=== PATIENT | male | born 1995 | race Caucasian/White ===

== ENCOUNTER 2020-03-24 07:22 | Outpatient (REF) | payer BC, SELFPAY | END 2020-03-24 07:23 | disposition home or self-care (01) | LOC: HO.LAB 07:22 | PROVIDERS: Visit Provider Internal Medicine | DX: Z20.828 Contact with and (suspected) exposure to other viral communicable diseases (principal) | CPT/HCPCS: C9803; U0003 ==

== ENCOUNTER 2022-03-18 06:14 | Emergency (ER) | payer BC, SELFPAY ==
--- NOTE | ~2022-03-18 | CT_ITS ---
EXAMINATION: CT HEAD WITHOUT CONTRAST CLINICAL INFORMATION: Left-sided headache with vision changes. COMPARISON: None TECHNIQUE: Contiguous axial imaging was performed from the skull base to vertex without intravenous administration of contrast. Coronal and sagittal reformatted images were obtained. This CT examination was performed using dose optimization techniques as appropriate, variously including the following: *Automated exposure control *Adjustment of mA and/or kV according to patient size (this includes techniques or standardized protocols for targeted exams where dose is matched to indication/reason for exam; i.e. extremities or head) *Use of iterative reconstruction technique DLP: 852 mGy-cm FINDINGS: The cortical sulci are normal. The lateral ventricles are symmetrical. The third and fourth ventricles are in their normal midline position. The basilar and prepontine cisterns are unremarkable. There is no acute intra or extracerebral abnormality. There is no mass effect or midline shift. Sections through the bony calvarium are unremarkable. The paranasal sinuses are clear. The bony orbits and orbital contents are unremarkable. CT/CT head/brain wo IV con IMPRESSION: No acute intracranial pathology.
[2022-03-18 06:28] VITALS: BP 133/94; PULSE 78; RESP 16; TEMP 36.6; O2SAT 99; BMI 27.8
[2022-03-18 07:33] VITALS: BP 131/80; PULSE 70; RESP 15; TEMP 36.6; O2SAT 98
--- NOTE | 2022-03-18 08:18 | PC.NURSE ---
pt alert and oriented, skin pwd, respirations even and unlabored, pt reports headache on the left side x7 days that has woken him out of sleep, lots of pressure behind the left eye, no cough/sob/ denies light and noise sensitivity some nasuea. all neuro intac, no visible hand drift, equal and strong hand grasp, no difficulty ambulating, no dizziness
--- NOTE | 2022-03-18 08:58 | ED_ITS ---
HPI - Headache General Chief Complaint: Headache Stated Complaint: consistent migraine for about a week Time Seen by Provider: 03/18/22 08:02 Source: patient Mode of arrival: ambulatory Limitations: no limitations History of Present Illness HPI Narrative: 26-year-old male no significant past medical history presents to the emergency department for reports of a headache for the past 7 days. He states he wakes from his sleep with head pain in his left-sided eye pressure. He states he last took ibuprofen at 5:00 a.m. with no relief of symptoms. He denies any known sick contacts. He denies fever, chills, changes in bowels, difficulty with urination, or vision changes. MD elicited complaint: migraine Onset (ago): week(s) (1) Onset description: while at rest Location: left Severity: moderate Pain scale (0-10): 4 Quality & Timing: aching Relieving factors: nothing Context: occurred at rest Associated symptoms: none Treatments prior to arrival: ibuprofen Related Data Allergies Allergy/AdvReac Type Severity Reaction Status Date / Time No Known Allergies Allergy Verified 03/18/22 06:33 Review of Systems Review of Systems: In addition to documented HPI above, the additional ROS was obtained: Constitutional: No Weight loss, No Fever, No Chills ENT/Mouth: No Ear Pain, No Hoarseness, No sore throat, No Rhinorrhea, No Swallowing Difficulty Cardiovascular: No Chest Pain, No SOB Respiratory: No Cough, No Sputum, No Wheezing Gastrointestinal: No Nausea, No Vomiting, No Diarrhea, No Constipation, No Abdominal pain Genitourinary: No Dysuria, No Urinary Frequency, No Hematuria, No Urinary Incontinence/retention, No Urgency, No Flank Pain Musculoskeletal: No joint pain, No Myalgias, No Joint Swelling Skin: No Skin Lesions, No rash Neuro: No Weakness, No Numbness, No Paresthesias Yes all other systems are reviewed and are negative ENT: Reports Normal hearing present Neurologic: Reports Normal hearing present [facility] Past Medical History Attestation statement: The following information was validated with the patient. Source: old records reviewed Social History Social History Smoked in Last 30 Days: No Use of substances other than those prescribed or required for medical reasons: No Advance Directives: No Physical Exam Vital Signs: Vital Signs: Last Vital Signs Temp 97.8 F 12/22/22 09:38 Pulse 65 03/18/22 09:38 Resp 15 03/18/22 09:38 BP 125/81 03/18/22 09:38 Pulse Ox 99 03/18/22 09:38 O2 Del Method 03/18/22 09:38 BMI result Body Mass Index 27.8 Const: General: cooperative, alert and awake Nutritional Appearance: well nourished Orientation/consciousness: patient oriented x3 Limitations: no limitations HEENT: Head: Yes normal to inspection, Yes normocephalic, Yes atraumatic and No Temporal artery tenderness present Ears: hearing grossly normal bilaterally and external ears normal General nose exam: Normal external nose present and Normal nares present Face and sinus: Yes normal facial exam, Yes face symmetric, Yes normal transillumination of sinuses and Yes sinus tenderness (left) Mouth: Normal oral and palatal mucosa present and tongue normal Teeth and gingiva: dentition normal Throat: Yes posterior oropharynx normal, Yes tonsils normal and Yes uvula midline Eyes: General: appearance normal, both eyes and all related structures Visual Hayden: normal visual hayden by confrontation Alignment and Position: alignment normal Periorbital: periorbital findings normal Eyelids: Yes eyelids normal Conjunctivae: conjunctivae normal Sclerae: sclerae normal Corneas: corneas normal Pupils: Equal, round and reactive pupils present EOM: EOMs intact bilaterally Neck: Neck: Yes normal visual inspection, Yes full ROM and Yes no lymphadenopathy Chest: Chest palpation & inspection: normal inspection of the chest Resp: Effort & Inspection: normal respiratory effort and not labored Auscultation: clear to auscultation bilaterally, no crackles, no rhonchi and no wheezes Cardio: Rate: regular rate Rhythm: regular rhythm GI: Inspection: Yes normal to inspection Palpation (GI): Soft to palpation and nontender Auscultation: normal bowel sounds : General: Yes no CVA tenderness Back/Spine/Pelvis: Back: no CVA tenderness Cervical Spine: cervical ROM normal Thoracic/Lumbar Spine: thoraco-lumbar ROM normal Skin: General skin exam: no rashes or lesions noted Neuro: General: patient oriented x3, gait normal, tone normal and moves all extremities Cranial nerves: Yes Equal, round and reactive pupils present, Yes Normal facial strength present, Yes Midline tongue present, Yes Normal hearing present and Yes Ability to bilaterally elevate shoulders present Cognition (Neuro): normal cognition Motor exam (neuro): 5/5 motor strength present throughout Extrem: General: Yes normal to inspection, Yes full ROM and Yes capillary refill normal Psych: Appearance: grossly normal Mental Status: mental status grossly normal Speech and movement: Normal speech and movement present Affect: normal affect Attitude: cooperative Thought process: Normal thought process present Thought content: Normal thought content present Course Course Course Narrative: 0810: Serology sent to rule in/out covid-19, RSV, or flu based on HPI and PE 0930: Serology negative. Fioricet and Benadryl ordered for treatment of headache 1000: discussed pt's presentation with Dr Rios. Plan for head ct and labs to rule out intracranial pathology and/or temporal arteritis. 1100: Blood work unremarkable. CT head unremarkable. Headache pain relieved by benadryl and fioricet. Plan to discharge home with OTC Excedrin and Benadryl for management of heachache at home. Medications Administered Discontinued Medications Generic Name Dose Route Start Last Admin Trade Name Bhavikq PRN Reason Stop Dose Admin Acetaminophen/Butalbital/Caffeine 1 tab 03/18/22 09:21 03/18/22 09:41 Butalb/Acetamin/Caff 50/325/40 Tablet PO 03/18/22 09:22 1 tab ONCE ONE Administration Diphenhydramine HCl 25 mg 03/18/22 09:29 03/18/22 09:41 Diphenhydramine Hcl 25 Mg Capsule PO 03/18/22 09:30 25 mg ONCE ONE Administration Medical Decision Making Medical Decision Making [facility] Narrative: 26-year-old male no significant past medical history presents to the emergency department for reports of a headache for the past 7 days that wakes from his sleep with head pain in his left-sided eye pressure. CT head negative for intracranial pathology. Blood work unremarkable. Headache relieved with benadryl and fioricet. HPI and PE consistent with acute headache. Low suspicion for meningitis, optic neuritis, temporal arteritis, and intracranial pathology based on workup. Plan to discharge patient home with use of [id number] Benadryl and Excedrin for relief of headache pain. HPI, PE, diagnosis, plan discussed with patient and family with no unanswered questions at this time. Educated to return to the emergency department with worsening headache, loss of vision, double vision, shortness of breath, chest pain, fevers, or any other concerning emergent symptoms. Recommended to follow up with their primary care provider for further treatment and management. Lab Data Result Diagrams: 03/18/22 10:33 03/18/22 10:33 Labs: Lab Results 03/18/22 03/18/22 03/18/22 Range/Units 08:18 10:33 10:33 WBC 7.9 (4.8-10.8) X10*3/uL RBC 5.19 (4.60-5.80) X10*6/uL Hgb 16.1 (14.0-18.0) g/dl Hct 46.3 (42.0-52.0) % MCV 89.2 (80.0-98.0) fL MCH 31.0 (27.0-33.0) pg MCHC 34.8 (31.0-36.0) g/dl RDW 12.0 (11.0-16.0) % Plt Count 168 (160-400) X10*3/uL MPV 12.0 (9.4-12.4) fL Absolute Nucleated RBC 0.000 (0.0-0.012) X10*3/uL Nucleated RBC % (auto) 0.0 (0.0-0.2) /100WBC ESR 1 (0-15) MM/HR Sodium (135-145) mmol/L Potassium (3.3-5.1) mmol/L Chloride (96-108) mmol/L Carbon Dioxide (22-29) mmol/L Anion Gap (12-20) BUN (9-16) mg/dL Creatinine (0.5-1.4) mg/dL Estim Creat Clear Calc Estimated GFR Random Glucose (60-115) mg/dL Calcium (8.4-10.2) mg/dL Total Bilirubin (0.0-1.0) mg/dL AST (5-37) U/L ALT (0-40) U/L Alkaline Phosphatase (39-117) U/L C-Reactive Protein (< or = 0.50) mg/dL Total Protein (6.5-8.0) g/dL Albumin (3.5-5.0) g/dL Influenza Type A (PCR) NEGATIVE (Negative) Influenza Type B (PCR) NEGATIVE (Negative) RSV RNA Qual (PCR) NEGATIVE (Negative) SARS-CoV-2 RNA (RT-PCR) NEGATIVE (Negative) 03/18/22 Range/Units 10:33 WBC (4.8-10.8) X10*3/uL RBC (4.60-5.80) X10*6/uL Hgb (14.0-18.0) g/dl Hct (42.0-52.0) % MCV (80.0-98.0) fL MCH (27.0-33.0) pg MCHC (31.0-36.0) g/dl RDW (11.0-16.0) % Plt Count (160-400) X10*3/uL MPV (9.4-12.4) fL Absolute Nucleated RBC (0.0-0.012) X10*3/uL Nucleated RBC % (auto) (0.0-0.2) /100WBC ESR (0-15) MM/HR Sodium 140 (135-145) mmol/L Potassium 4.8 (3.3-5.1) mmol/L Chloride 104 (96-108) mmol/L Carbon Dioxide 30 H (22-29) mmol/L Anion Gap 11 L (12-20) BUN 14 (9-16) mg/dL Creatinine 1.08 (0.5-1.4) mg/dL Estim Creat Clear Calc 117.3 Estimated GFR > 60 Random Glucose 102 (60-115) mg/dL Calcium 9.8 (8.4-10.2) mg/dL Total Bilirubin 0.8 (0.0-1.0) mg/dL AST 29 (5-37) U/L ALT 43 H (0-40) U/L Alkaline Phosphatase 74 (39-117) U/L C-Reactive Protein 0.12 (< or = 0.50) mg/dL Total Protein 7.6 (6.5-8.0) g/dL Albumin 4.7 (3.5-5.0) g/dL Influenza Type A (PCR) (Negative) Influenza Type B (PCR) (Negative) RSV RNA Qual (PCR) (Negative) SARS-CoV-2 RNA (RT-PCR) (Negative) Discharge Plan Discharge Clinical Impression: Headache Patient Disposition: Home, Self-Care Instructions: Acute Headache (ED) Additional Instructions: Your CT scan is negative for any bleeds, tumors, or intracranial pathology. Your blood work is unremarkable. Your history and physical exam are consistent with an acute headache. You may manage her symptoms with [id number] Benadryl and Excedrin migraine with dosing per package instructions. Please return to the emergency department with worsening headache, loss of vision, double vision, shortness of breath, chest pain, fevers, or any other concerning emergent symptoms. Recommended to follow up with your primary care provider for further treatment and management. Referrals: Whitney Lozano PA-C [Primary Care Provider] - Stand Alone Forms: Work/School Release Interventions: ED Discharge Assessment Last Done: 03/18/22 11:47 Print Language: Spanish
[2022-03-18 09:12] LABS: Influenza A PCR NEGATIVE (Negative); Influenza B PCR NEGATIVE (Negative); Resp Syncy Virus RNA Qual PCR NEGATIVE (Negative); SARS COV2 PCR INHOUSE NEGATIVE (Negative)
[2022-03-18 09:38] VITALS: BP 125/81; PULSE 65; RESP 15; TEMP 36.6; O2SAT 99
[2022-03-18] MEDS: Butalb/Acetamin/Caff 50/325/40 TABLET 1 TAB PO (09:41)
[2022-03-18] MEDS: diphenhydrAMINE HCL 25 MG CAPSULE PO (09:41)
[2022-03-18 10:44] LABS: Hematocrit 46.3 % (42.0-52.0); Hemoglobin 16.1 g/dl (14.0-18.0); Mean Corpuscular HGB Conc 34.8 g/dl (31.0-36.0); Mean Corpuscular Volume 89.2 fL (80.0-98.0); Platelet Count 168 X10*3/uL (160-400); Red Blood Count 5.19 X10*6/uL (4.60-5.80); White Blood Count 7.9 X10*3/uL (4.8-10.8)
[2022-03-18 11:15] LABS: Alanine Aminotransferase 43 U/L (0-40); Albumin Level 4.7 g/dL (3.5-5.0); Alkaline Phosphatase 74 U/L (39-117); Anion Gap 11 (12-20); Aspartate Amino Transferase 29 U/L (5-37); Blood Urea Nitrogen 14 mg/dL (9-16); C Reactive Protein 0.12 mg/dL (< or = 0.50); Calcium 9.8 mg/dL (8.4-10.2); Carbon Dioxide 30 mmol/L (22-29); Chloride 104 mmol/L (96-108); Creatinine Clr Calc Pharmacy 117.3; Estimated Glomerular Filt Rate > 60; Glucose Random 102 mg/dL (60-115); Potassium 4.8 mmol/L (3.3-5.1); Sodium 140 mmol/L (135-145); Total Protein 7.6 g/dL (6.5-8.0)
[2022-03-18 11:34] LABS: Bilirubin Total 0.8 mg/dL (0.0-1.0)
[2022-03-18 11:41] LABS: Erythrocyte Sedimentation Rate 1 MM/HR (0-15)
== END 2022-03-18 11:50 | disposition home or self-care (01) ==
PROVIDERS: Nurse Practitioner Family; Emergency Provider Emergency Medicine Emergency Medical Services; PCP Physician Assistant Medical
DX: R51.9 Headache, unspecified (principal); Z20.822 Contact with and (suspected) exposure to COVID-19
CPT/HCPCS: 0241U; 36415; 70450; 80053; 85027; 85652; 86140; 99284